=== PATIENT | female | born 1985 | race Caucasian/White ===

== ENCOUNTER 2019-03-16 13:16 | Emergency (ER) | payer SELFPAY ==
[2019-03-16 13:34] VITALS: BP 106/55
--- NOTE | 2019-03-16 13:47 | ED Physician Documentation ---
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 Onset: days ago (2) Severity: mild Location of Pain: pelvic pain - Associated Symptoms Urinary Symptoms: discomfort w/ urination Discharge: denies: vaginal discharge - ROS CONST: none GI/: denies: nausea, vomiting CVS/RESP: none EYES/ENT: none NEURO/PSYCH: none MS/SKIN/LYMPH: none - PAST HX Past History: none Other History: none Surgeries/Procedures: none Immunizations: UTD Allergies/Adverse Reactions: Allergies Allergy/AdvReac Type Severity Reaction Status Date / Time No Known Allergies Allergy Verified 03/16/19 13:38 Home Medications: Ambulatory Orders Medication Instructions Recorded NK 03/16/19 - SOCIAL HX Smoking History: greater than 1 pack/day Alcohol Use: occasionally Drug Use: heroin, methamphetamines - FAMILY HX Family History: none - VITAL SIGNS Vital Signs: Vital Signs Temp Pulse Resp BP Pulse Ox 98.4 F 79 18 106/55 100 03/16/19 13:28 03/16/19 13:28 03/16/19 13:28 03/16/19 13:28 03/16/19 13:28 - REVIEWED ASSESSMENTS Nursing Assessment Reviewed: Yes Vitals Reviewed: Yes ED Results Lab/Radiology - Orders Orders: ED Orders Category Date Time Status URINALYSIS Routine Lab 03/16/19 13:39 Ordered Female Urogenital Problems - EXAM General Appearance: no acute distress, alert EENT: eye inspection normal, ENT inspection normal, pharynx normal, no signs of dehydration, PERLA Neck: nml inspection Respiratory: breath sounds nml CVS: heart sounds normal Abdomen: soft, non-tender, no distention, nml bowel sounds Back: non-tender Skin: color nml, no rash, warm,dry Extremities: non-tender, normal range of motion Neuro: oriented X3, motor nml, sensation nml, mood/affect nml, cognition normal Discharge Clincal Impression: Painful urination, Interstitial cystitis (chronic) without hematuria Referrals: Primary Doctor,No [Primary Care Provider] - 2 Days Additional Instructions: Try to avoid bladder irritants such as; caffeine, chocolate, etc.. Increase water intake until urine is pale yellow Alternate Tylenol and Motrin as needed for discomfort Follow up with PCP in 1 week for re-evaluation Condition: Good Disposition: 01 HOME, SELF-CARE Decision to Admit: NO Decision Time: 13:48
[2019-03-17 07:23] LABS: OCCULT BLOOD,URINE NEGATIVE (NEGATIVE); PH URINE 7.5 (5.0 - 8.0); UROBILINOGEN URINE 0.2 Eu (0.2-1.0)
== END 2019-03-16 13:44 | disposition home or self-care (01) ==
LOC: ED 13:16
DX: N30.10 Interstitial cystitis (chronic) without hematuria (principal)
CPT/HCPCS: 81002; 99282